=== PATIENT | male | born 1950 | race African-American/Black ===

== ENCOUNTER → 2023-11-16 11:51 | Outpatient (REF) | payer MEDICARE, SELFPAY | LOC: HWRAD 11:51 | PROVIDERS: ATTENDING PHYSICIAN Nurse Practitioner Family | DX: R05.9 Cough, unspecified (principal) | CPT/HCPCS: 71046 ==

== ENCOUNTER → 2025-02-05 14:41 | Outpatient (REF) | payer MEDICARE, SELFPAY | LOC: HWRAD 14:41 | PROVIDERS: ATTENDING PHYSICIAN Nurse Practitioner Family | DX: R05.9 Cough, unspecified (principal) | CPT/HCPCS: 71046 ==